=== PATIENT | male | born 1995 | race Two or more races ===

== ENCOUNTER 2025-04-06 07:28 | Emergency (ER) | payer MEDICAID, OTHER ==
[~2025-04-06] VITALS: Ht 177.8 cm; Wt 77.5 kg
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
[2025-04-06 08:42] VITALS: BP 144/94; PULSE 80; RESP 16; TEMP 98.2; O2SAT 97
[2025-04-06] MEDS ORDERED: IBU600T PO (09:40)
--- NOTE | 2025-04-06 09:40 | DVH ---
CLINICAL HISTORY: fall TECHNIQUE: Helical scanning was performed of the head from the skull base to the vertex. Multiplanar reconstructions were performed. This exam was performed according to our departmental dose optimizat ion program. Up-to-date CT equipment and radiation dose reduction techniques are utilized as appropri ate. CTDI 58.8 DLP 940.8 COMPARISON: None FINDINGS: There is no evidence for acute intracranial hemorrhage, acute ischemic changes, mass, mass effect, or extra-axial fluid collection. There is no hydrocephalus or midline shift. There is no effacement of the cerebral sulci and basal subarachnoid cisterns. The [place]-white matter differentiation is well shay ntained. There is moderate left frontal scalp soft tissue swelling with numerous foci of subcutaneous air. No underlying fracture is seen. The imaged paranasal sinuses are clear. IMPRESSION: Moderate left frontal scalp soft tissue swelling with numerous foci of subcutaneous air. No underlyin g acute intracranial abnormality seen.
== END 2025-04-06 09:51 | disposition home or self-care (01) ==
LOC: ER 07:28
DX: S01.81XA Laceration without foreign body of other part of head, initial encounter (principal); S09.90XA Unspecified injury of head, initial encounter; V89.2XXA Person injured in unspecified motor-vehicle accident, traffic, initial encounter; Y93.89 Activity, other specified; Y92.89 Other specified places as the place of occurrence of the external cause; Y99.8 Other external cause status
CPT/HCPCS: 12002; 12014; 70450